=== PATIENT | male | born 1975 | race African-American/Black ===

== ENCOUNTER 2017-11-30 11:04 | Emergency (ER) | payer SELFPAY ==
[~2017-11-30] VITALS: Ht 185.4 cm; Wt 123.0 kg
[2017-11-30] MEDS ORDERED: LIDOCAINE HCL 1% 20ML VIAL (Pyxis) INJ MC ONE (11:15)
[2017-11-30] MEDS ORDERED: BACITRACIN ZINC OINT UDPKT TOP ONE (11:15)
[2017-11-30] MEDS ORDERED: TETANUS, DIPHTHERIA, PERTUSSIS VAC/PF 0.5ML (>7YR OLD) IM ONE (11:15)
[2017-11-30] MEDS ORDERED: HYDROCODONE/ACETAMINOPHEN 5/325MG TABLET PO ONE (11:15)
[2017-11-30] MEDS ORDERED: TRAMADOL 50MG TABLET PO ONE (13:30)
[2017-11-30 14:18] VITALS: BP 160/86
== END 2017-11-30 14:38 | disposition home or self-care (01) ==
LOC: ER 11:04
DX: S51.812A Laceration without foreign body of left forearm, initial encounter (principal); S52.601A Unspecified fracture of lower end of right ulna, initial encounter for closed fracture; Y08.89XA Assault by other specified means, initial encounter; Y93.89 Activity, other specified; Y92.89 Other specified places as the place of occurrence of the external cause; Y99.8 Other external cause status; F17.200 Nicotine dependence, unspecified, uncomplicated; I10 Essential (primary) hypertension; Z23 Encounter for immunization
CPT/HCPCS: 12002; 29105; 73090; 90471; 90715; 99284; J3490; X7700; Z7610